=== PATIENT | female | born 1965 | race Caucasian/White ===

== ENCOUNTER → 2016-03-25 | Outpatient (CLI) | payer OTHER ==
[~2016-03-25] MED LIST: APRE1TAB3 PO; ASPCH81X PO; ATOR10TA88 PO; CHOL100027 PO; CYAN500T13 SL; FISHOIL PO; GLC/500 PO; HYDC25 PO; LISI10TA PO; LVMI SC; METH2.5T PO; MULT-506 PO; NVLGI/PEN SC; PRED-301 PO; SERT50TA PO; ZOLP5TAB PO
[2016-03-25 16:55] LABS: URINE APPEARANCE CLEAR (CLEAR); URINE BILIRUBIN NEG (NEG); URINE COLOR DK YELLOW; URINE EPITHELIAL CELL AUTO >30 /lpf (0-5); URINE NITRITE NEG (NEG); URINE PH 6.5 (4.5-7.5); URINE SPECIFIC GRAVITY 1.023 (1.000-1.030); UROBILINOGEN NEG (NEG); ZZUR CULT IF INDIC CLEAN CATCH NO
[2016-03-25 17:04] LABS: ALT/SGPT 31 U/L (12-78); BLOOD UREA NITROGEN 19 mg/dl (7-18); CALCIUM 9.3 mg/dl (8.5-10.1); CARBON DIOXIDE 32 mmol/L (21-32); CHLORIDE 101 mmol/L (98-107); CREATININE 0.84 mg/dl (0.60-1.20); GLUCOSE 134 mg/dl (70-99); MAGNESIUM 1.8 mg/dl (1.8-2.4); MANUAL MICROSCOPIC REQUIRED? NO; POTASSIUM 3.7 mmol/L (3.5-5.1); REVIEW REQ? NO; SODIUM 142 mmol/L (136-145)
[2016-03-25 17:15] LABS: ALB/GLOB RATIO 1.2 (0.9-2); ALKALINE PHOSPHATASE 69 U/L (45-117); AST/SGOT 15 U/L (15-37)
[2016-03-25 17:18] LABS: RATIO 24.2 mcg/mg (0-30.0)
[2016-03-26 06:05] LABS: ESTIMATED AVERAGE GLUCOSE 157 mg/dl; HA1C FLAG Normal (Normal)
== END | disposition home or self-care (01) ==
LOC: C.LAB1850 15:22
PROVIDERS: ATTEND Internal Medicine
DX: E11.9 Type 2 diabetes mellitus without complications (principal); I10 Essential (primary) hypertension; E83.42 Hypomagnesemia; E03.9 Hypothyroidism, unspecified

== ENCOUNTER → 2016-04-07 | Outpatient (CLI) | payer OTHER ==
--- NOTE | 2016-04-07 11:16 | DIAGNOSTIC IMAGING REPORT ---
CT SCAN OF THE CHEST WITHOUT IV CONTRAST CLINICAL HISTORY: Follow-up abnormal chest imaging studies. COMPARISON STUDY: Chest CT dated 07/31/2015. Chest x-ray dated 09/05/2015. TECHNIQUE: CT scan of the thorax was performed from the thoracic inlet to the upper abdomen. Images are reviewed in the axial, sagittal, and coronal planes. IV contrast was not administered for this examination as per the referring clinician. CT DOSE: 610.02 mGycm FINDINGS: Thyroid: Imaged portions of the thyroid gland are normal in size and attenuation. Thoracic aorta: The thoracic aorta is normal in caliber and demonstrates standard 3-vessel arch anatomy. Heart: The heart is normal in size and there is trace pericardial fluid. The pulmonary trunk is normal in caliber. Lungs and pleural spaces: There is no airspace consolidation typical for pneumonia or pleural effusion. Foci of linear atelectasis versus scarring are present in both lungs, greatest in the superior segment of left lower lobe and in the right upper lobe. There are foci of clustered nodularity identified in the left upper lobe and lingula. The largest nodule measures up to 7 mm as seen on image #68. These nodules have decreased in size from the 07/31/2015 examination. The trachea and central airways are clear. Mediastinum: There is no mediastinal lymphadenopathy. Terra: Not well assessed without IV contrast. Axillae: There is no axillary lymphadenopathy. Upper abdomen: There is a tiny hiatal hernia. Hepatic steatosis is suspected. Partially visualized upper abdominal viscera is otherwise within normal limits. Skeletal structures: No lytic or blastic bony lesions are seen. IMPRESSION: 1. There is no lobar consolidation typical or pleural effusion. 2. Foci of clustered nodularity in the left upper lobe and lingula are again seen. The nodules have decreased in size from 07/31/2015 and likely represent a chronic infectious/inflammatory process. Clinical correlation will be required. Electronically signed by: Jerad Williamson M.D. 04/07/2016 11:15 AM Dictated Date/Time: 04/07/2016 11:10 AM
== END | disposition home or self-care (01) ==
LOC: C.CTS 10:56
PROVIDERS: ATTEND Internal Medicine Pulmonary Disease
DX: R91.8 Other nonspecific abnormal finding of lung field (principal)

== ENCOUNTER → 2016-05-26 | Outpatient (CLI) | payer OTHER ==
--- NOTE | 2016-05-26 12:51 | DIAGNOSTIC IMAGING REPORT ---
LUMBAR SPINE 5 VIEWS HISTORY: Back pain M54.5 Low back [id number] COMPARISON: None. FINDINGS: There is no fracture. No subluxation. Mild degenerative disc changes throughout. IMPRESSION: No fracture or subluxation within the lumbar spine. Electronically signed by: Lawrence Chaney M.D. 05/26/2016 12:50 PM Dictated Date/Time: 05/26/2016 12:49 PM
--- NOTE | 2016-05-26 12:53 | DIAGNOSTIC IMAGING REPORT ---
PELVIS/BILATERAL HIP 2 VIEWS CLINICAL HISTORY: Bilateral hip pain. COMPARISON STUDY: None. FINDINGS: No fracture or dislocation within the pelvis or hips. Bilateral hip cartilage spaces are maintained for age. There are mild degenerative changes within the bilateral sacroiliac joints. The sacrum appears intact. Soft tissues are unremarkable. IMPRESSION: 1. No fracture or dislocation within the pelvis or hips. 2. Mild bilateral sacroiliac joint degenerative changes. Electronically signed by: Vasu Vick M.D. 05/26/2016 12:52 PM Dictated Date/Time: 05/26/2016 12:50 PM
--- NOTE | 2016-05-26 12:55 | DIAGNOSTIC IMAGING REPORT ---
KUB HISTORY: M54.5 Low back [id number] COMPARISON: None. FINDINGS: The bowel gas pattern is unremarkable. There are no dilated loops of small bowel to suggest an obstruction. No renal calculi. No ureteral calculi. No pneumoperitoneum or pneumatosis. IMPRESSION: No renal or ureteral stones. Electronically signed by: Vasu Vick M.D. 05/26/2016 12:54 PM Dictated Date/Time: 05/26/2016 12:53 PM
[2016-05-26 13:29] LABS: URINE APPEARANCE CLEAR (CLEAR); URINE BILIRUBIN NEG (NEG); URINE COLOR YELLOW; URINE EPITHELIAL CELL AUTO >30 /lpf (0-5); URINE NITRITE NEG (NEG); URINE PH 5.5 (4.5-7.5); URINE SPECIFIC GRAVITY 1.029 (1.000-1.030); UROBILINOGEN NEG (NEG); ZZUR CULT IF INDIC CLEAN CATCH YES
[2016-05-26 13:32] LABS: MANUAL MICROSCOPIC REQUIRED? NO; REVIEW REQ? NO
== END | disposition home or self-care (01) ==
LOC: C.RAD1850 11:54
PROVIDERS: ATTEND Internal Medicine
DX: M54.5 Low back pain (principal)

== ENCOUNTER → 2016-06-17 | Outpatient (CLI) | payer OTHER ==
[~2016-06-17] MED LIST changes: +ATOR10TA82 PO; -ATOR10TA88 PO; +HYDR25TA4 PO; +INSU100I23 SC; +LEVO50TA6 PO; +MAGN400T6 PO; +OMEG10007 PO; +POTA1TAB PO; +SERT-234 PO; +ZOLP10TA PO
[2016-06-17 13:36] LABS: URINE APPEARANCE TURBID (CLEAR); URINE BILIRUBIN NEG (NEG); URINE COLOR DK YELLOW; URINE EPITHELIAL CELL AUTO 20-30 /lpf (0-5); URINE NITRITE NEG (NEG); URINE SPECIFIC GRAVITY 1.026 (1.000-1.030); UROBILINOGEN NEG (NEG); ZZUR CULT IF INDIC CLEAN CATCH NO
[2016-06-17 13:39] LABS: MANUAL MICROSCOPIC REQUIRED? NO; REVIEW REQ? NO
== END | disposition home or self-care (01) ==
LOC: C.LAB1850 11:48
PROVIDERS: ATTEND Internal Medicine
DX: N39.0 Urinary tract infection, site not specified (principal)

== ENCOUNTER → 2016-09-01 | Outpatient (CLI) | payer OTHER ==
[~2016-09-01] MED LIST changes: +GADAVIST IV PRN
--- NOTE | 2016-09-01 11:30 | DIAGNOSTIC IMAGING REPORT ---
Limited orbits ORBIT COMBO CLINICAL HISTORY: E05.00 Graves [id number] Graves' disease TECHNIQUE: MRI multi axial acquisition. COMPARISON STUDY: None FINDINGS: No evidence for exophthalmos. Globes appear symmetric. Suggestion of slight degree of edematous change about the inferior medial and superior rectus musculature. Trace amount of postcontrast enhancement. No evidence for abnormal enhancement of the retroseptal fat. Optic nerves appear symmetric. IMPRESSION: 1. Slight edematous change of the rectus musculature. 2. Appearance may suggest early and/or secondary evidence for developing Graves' disease. Electronically signed by: Lawrence Chaney M.D. 09/01/2016 11:29 AM Dictated Date/Time: 09/01/2016 11:19 AM
== END | disposition home or self-care (01) ==
LOC: C.MRI 10:21
PROVIDERS: ATTEND Internal Medicine Endocrinology, Diabetes & Metabolism
DX: E05.00 Thyrotoxicosis with diffuse goiter without thyrotoxic crisis or storm (principal)

== ENCOUNTER → 2016-09-02 | Outpatient (CLI) | payer OTHER ==
[~2016-09-02] MED LIST changes: -ATOR10TA82 PO; +ATOR10TA88 PO; -GADAVIST IV PRN; -HYDR25TA4 PO; -INSU100I23 SC; -LEVO50TA6 PO; -MAGN400T6 PO; -OMEG10007 PO; -POTA1TAB PO; -SERT-234 PO; -ZOLP10TA PO
== END | disposition home or self-care (01) ==
LOC: C.PAPS 18:01
PROVIDERS: ATTEND Obstetrics & Gynecology
DX: Z12.4 Encounter for screening for malignant neoplasm of cervix (principal)

== ENCOUNTER → 2016-10-23 | Outpatient (CLI) | payer OTHER ==
--- NOTE | 2016-10-23 12:17 | DIAGNOSTIC IMAGING REPORT ---
CHEST 2 VIEWS ROUTINE CLINICAL HISTORY: R05 [id number] dyspnea COMPARISON STUDY: 09/05/2015 FINDINGS: Unchanging in stable fibrocalcific change and underlying nodularity right upper lung. Plate like atelectasis left base considered chronic. No acute or interval process. IMPRESSION: Chronic change. No acute process. The above report was generated using voice recognition software. It may contain grammatical, syntax or spelling errors. Electronically signed by: Lawrence Chaney M.D. 10/23/2016 12:16 PM Dictated Date/Time: 10/23/2016 12:15 PM
--- NOTE | 2016-10-23 12:25 | DIAGNOSTIC IMAGING REPORT ---
SINUSES MIN 3 VIEWS ROUTINE CLINICAL HISTORY: R05 [id number] cough. Dyspnea. COMPARISON STUDY: None FINDINGS: All major sinuses are clear. Mastoid air cells are clear. No bony destructive process. IMPRESSION: Normal study The above report was generated using voice recognition software. It may contain grammatical, syntax or spelling errors. Electronically signed by: Lawrence Chaney M.D. 10/23/2016 12:23 PM Dictated Date/Time: 10/23/2016 12:23 PM
== END | disposition home or self-care (01) ==
LOC: C.RAD1850 11:49
PROVIDERS: ATTEND Physician Assistant
DX: R05 Cough (principal)

== ENCOUNTER → 2016-10-23 | Outpatient (CLI) | payer OTHER ==
[2016-10-23 13:49] LABS: ESTIMATED AVERAGE GLUCOSE 157 mg/dl; HA1C FLAG Normal (Normal)
[2016-10-23 14:30] LABS: THYROID STIMULATING HORMONE 1.19 uIu/ml (0.300-4.500)
--- NOTE | 2016-10-30 08:59 | CODING QUERY MEDICAL NECESSITY ---
SUPPORTING DIAGNOSIS NEEDED Maile JUSTIN, A supporting diagnosis is required for the test/procedure performed on this patient in order for us to be reimbursed by the patient's insurance. Please provide a supporting diagnosis for the following test/procedure listed below next to the test name along with your signature. *If there is no additional diagnosis for this patient that would support the following test/procedure please document that below next to the test/procedure. Test(s)/Procedure(s) that require a supporting diagnosis: * 80193 VITAMIN D ASSAY DIAGNOSIS: DATE OF SERVICE: 10/23/16 Provider Signature: Date: Thank you Kirk Parekh [facility] Information Management Once completed, please kindly fax back to [phone] For questions please call [phone]
== END | disposition home or self-care (01) ==
LOC: C.LAB1850 12:20
PROVIDERS: ATTEND Nurse Practitioner Adult Health
DX: E03.9 Hypothyroidism, unspecified (principal); E11.9 Type 2 diabetes mellitus without complications; E66.01 Morbid (severe) obesity due to excess calories

== ENCOUNTER → 2017-02-06 | Outpatient (CLI) | payer OTHER ==
[~2017-02-06] MED LIST changes: -APRE1TAB3 PO; +ATOR10TA82 PO; -ATOR10TA88 PO; -FISHOIL PO; -HYDC25 PO; +HYDR25TA4 PO; +INSU100I23 SC; +LEVO50TA6 PO; -LVMI SC; +MAGN400T6 PO; +OMEG10007 PO; +POTA1TAB PO; +SERT-234 PO; -SERT50TA PO; +ZOLP10TA PO; -ZOLP5TAB PO
--- NOTE | 2017-02-06 12:32 | DIAGNOSTIC IMAGING REPORT ---
R KNEE 1 OR 2 VIEWS ROUTINE HISTORY: 51 years-old Female M25.561 Knee pain, [id number] acute right knee pain without reported trauma COMPARISON: Right knee radiographs 09/02/2012 TECHNIQUE: AP and lateral views of the right knee FINDINGS: Mild medial and patellofemoral compartment joint space narrowing with marginal spurring. Enthesophyte at the superior pole of the patella at the quadriceps insertion site redemonstrated. Small joint effusion. No acute fracture, dislocation or osteochondral defect. IMPRESSION: 1. Mild medial and patellofemoral compartment osteoarthritis without acute fracture or dislocation. 2. Small joint effusion. The above report was generated using voice recognition software. It may contain grammatical, syntax or spelling errors. Electronically signed by: Vu Hernández M.D. 02/06/2017 12:31 PM Dictated Date/Time: 02/06/2017 12:27 PM
[2017-02-06 13:28] LABS: ESTIMATED AVERAGE GLUCOSE 163 mg/dl; HA1C FLAG Normal (Normal)
[2017-02-06 13:51] LABS: ALT/SGPT 30 U/L (12-78); BLOOD UREA NITROGEN 17 mg/dl (7-18); BUN/CREATININE RATIO 18.5 (10-20); CALCIUM 9.4 mg/dl (8.5-10.1); CARBON DIOXIDE 31 mmol/L (21-32); CHLORIDE 99 mmol/L (98-107); CHOLESTEROL 191 mg/dl (0-200); CREATININE 0.94 mg/dl (0.60-1.20); GLUCOSE 201 mg/dl (70-99); POTASSIUM 3.6 mmol/L (3.5-5.1); SODIUM 137 mmol/L (136-145); TRIGLYCERIDES 292 mg/dl (0-150); VERY LOW DENSITY LIPOPROT CALC 58 mg/dl
[2017-02-06 13:54] LABS: ALKALINE PHOSPHATASE 67 U/L (45-117); AST/SGOT 16 U/L (15-37); CHOLESTEROL/HDL RATIO 2.5; HDL CHOLESTEROL 76 mg/dl; LDL CHOLESTEROL CALCULATED 57 mg/dl
[2017-02-06 15:33] LABS: RATIO 25.4 mcg/mg (0-30.0)
[2017-02-06 16:00] LABS: THYROID STIMULATING HORMONE 1.31 uIu/ml (0.300-4.500)
== END | disposition home or self-care (01) ==
LOC: C.RAD1850 11:55
PROVIDERS: ATTEND Internal Medicine
DX: M25.561 Pain in right knee (principal); I10 Essential (primary) hypertension; E11.9 Type 2 diabetes mellitus without complications; E78.5 Hyperlipidemia, unspecified; E03.9 Hypothyroidism, unspecified

== ENCOUNTER → 2017-02-16 | Day surgery (SDC) | payer OTHER ==
[2017-02-04 14:36] VITALS: BMI 37.0
[~2017-02-16] VITALS: Ht 160 cm; Wt 95.5 kg
[~2017-02-16] MED LIST changes: +LIDOCAINE HCL 2% 2 ML VIAL (20MG/ML) ONE; +MIDAZOLAM HCL 1 MG/ML 2ML VIAL ONE; +PROPOFOL IV EMULSION 10 MG/ML 20 ML VIAL IV ONE; +SODIUM CHLORIDE 0.9% 500ML 500 ML IV ONE
[2017-02-16 07:45] VITALS: Ht 160 cm; Wt 95.5 kg
--- NOTE | 2017-02-16 08:27 | Endo History and Physical ---
History & Physical Date of Service: Feb 16, 2017. Chief Complaint: SCREENING Referring Physician: NEIL History of Present Illness 51 yo female who presents for screening colonoscopy. Past Surgical History Hx Cardiac Surgery: No Hx Internal Defibrillator: No Hx Pacemaker: No Hx Abdominal Surgery: No Hx Post-Op Nausea and Vomiting: No Hx Cancer Surgery: No Hx Thoracic Surgery: Yes (BRONCHOSCOPY) Hx Orthopedic: No Hx Urinary Tract Surgery: No Family History None Social History Smoking Status: Never Smoker Hx Substance Use: No Hx Alcohol Use: Yes (RARELY) Allergies Coded Allergies: Corticosteroids (Verified Allergy, Unknown, ITCHY THROAT, 02/04/17) Erythromycin (Verified Allergy, Unknown, HIVES, 02/04/17) Penicillins (Verified Allergy, Unknown, RASH, SWELLING, 02/04/17) Current Medications Reported Home Medications Medications Dose Route/Sig Max Daily Dose Days Date Category Dose Instructions Mag-Ox (Magnesium Oxide) 400 Mg Tab 400 Mg PO HS 02/04/17 Reported Levothyroxine Sodium 50 Mcg Tab 1 Tab PO QAM 02/04/17 Reported Potassium Gluconate 595 Mg Tab 1 Tab PO QAM 02/04/17 Reported Ambien (Zolpidem Tartrate) 10 Mg Tab 10 Mg PO HS 02/04/17 Reported Zoloft (Sertraline HCl) 100 Mg Tab 100 Mg PO QAM 02/04/17 Reported Hctz (Hydrochlorothiazide) 25 Mg Tab 25 Mg PO Q2D 02/04/17 Reported [place]-3 (Fish Oil) 1 Ea Cap 2 Cap PO QAM 02/04/17 Reported Basaglar Kwikpen (Insulin Glargine) 100 Unit/Ml Inj 50 Units SC HS 02/04/17 Reported Novolog Flexpen (Insulin Aspart) 100 Units/Ml Inj 5 Units SC AC 02/13/16 Reported IN ADDITION TO SLIDING SCALE Prednisone 5 Mg Tab 5 Mg PO QAM 02/13/16 Reported Methotrexate 2.5 Mg Tab 8 Tab PO WK 02/13/16 Reported Lipitor (Atorvastatin Calcium) 10 Mg Tab 10 Mg PO QPM 02/13/16 Reported Multivitamin (Multivitamins) Tab 1 Tab PO QAM 02/13/16 Reported Glucophage (Metformin Hcl) 500 Mg Tab 2 Tab PO QAM 02/13/16 Reported Aspirin Chewable (Aspirin) 81 Mg Chew 81 Mg PO HS 02/13/16 Reported Prinivil (Lisinopril) 10 Mg Tab 10 Mg PO QAM 03/29/12 Reported Vitamin D 1000 Unit (Cholecalciferol) 1,000 Unit Cap 2 Capsules PO QAM 03/29/12 Reported Vitamin B12 500MCG (Cyanocobalamin) 500 Mcg Tab 500 Mcg SL QAM 03/29/12 Reported Vital Signs Weight (Kilograms): 95.45 Height (Feet): 5 Height (Inches): 3 Date Time Temp Pulse Resp B/P (MAP) Pulse Ox O2 Delivery O2 Flow Rate FiO2 02/16/17 08:04 37.1 107 20 187/104 (131) 97 Room Air Physical Exam General Appearance: WD/WN, no apparent distress Respiratory/Chest: Auscultation: breath sounds normal Cardiovascular: Heart Auscultation: RRR Abdomen: Bowel Sounds: normal Inspection & Palpation: soft, non-distended, no tenderness, guarding & rebound Assessment and Plan Assessment: 51 yo female who presents for screening colonoscopy. Plan: Proceed with colonoscopy.
--- NOTE | 2017-02-16 08:52 | Discharge Instructions ---
Endoscopy Patient Instructions Date / Procedure(s) Performed Feb 16, 2017. Colonoscopy Allergy Information Coded Allergies: Corticosteroids (Verified Allergy, Unknown, ITCHY THROAT, 02/04/17) Erythromycin (Verified Allergy, Unknown, HIVES, 02/04/17) Penicillins (Verified Allergy, Unknown, RASH, SWELLING, 02/04/17) Discharge Date / Findings Feb 16, 2017. Internal hemorrhoids Medication Instructions Stopped Medication(s): METFORMIN AND ASA OK to resume all medications today as prescribed Reported Home Medications Medications Dose Route/Sig Max Daily Dose Days Date Category Dose Instructions Mag-Ox (Magnesium Oxide) 400 Mg Tab 400 Mg PO HS 02/04/17 Reported Levothyroxine Sodium 50 Mcg Tab 1 Tab PO QAM 02/04/17 Reported Potassium Gluconate 595 Mg Tab 1 Tab PO QAM 02/04/17 Reported Ambien (Zolpidem Tartrate) 10 Mg Tab 10 Mg PO HS 02/04/17 Reported Zoloft (Sertraline HCl) 100 Mg Tab 100 Mg PO QAM 02/04/17 Reported Hctz (Hydrochlorothiazide) 25 Mg Tab 25 Mg PO Q2D 02/04/17 Reported [place]-3 (Fish Oil) 1 Ea Cap 2 Cap PO QAM 02/04/17 Reported Basaglar Kwikpen (Insulin Glargine) 100 Unit/Ml Inj 50 Units SC HS 02/04/17 Reported Novolog Flexpen (Insulin Aspart) 100 Units/Ml Inj 5 Units SC AC 02/13/16 Reported IN ADDITION TO SLIDING SCALE Prednisone 5 Mg Tab 5 Mg PO QAM 02/13/16 Reported Methotrexate 2.5 Mg Tab 8 Tab PO WK 02/13/16 Reported Lipitor (Atorvastatin Calcium) 10 Mg Tab 10 Mg PO QPM 02/13/16 Reported Multivitamin (Multivitamins) Tab 1 Tab PO QAM 02/13/16 Reported Glucophage (Metformin Hcl) 500 Mg Tab 2 Tab PO QAM 02/13/16 Reported Aspirin Chewable (Aspirin) 81 Mg Chew 81 Mg PO HS 02/13/16 Reported Prinivil (Lisinopril) 10 Mg Tab 10 Mg PO QAM 03/29/12 Reported Vitamin D 1000 Unit (Cholecalciferol) 1,000 Unit Cap 2 Capsules PO QAM 03/29/12 Reported Vitamin B12 500MCG (Cyanocobalamin) 500 Mcg Tab 500 Mcg SL QAM 03/29/12 Reported Provider Instructions Activity Restrictions - No exercising or heavy lifting for 24 hours. - Do not drink alcohol the day of the procedure. - Do not drive a car or operate machinery until the day after the procedure. - Do not make any important decisions or sign important papers in 24 hours after the procedure. Following Day: - Return to full activity which may include returning to work/school. Diet Start your diet with liquids and light foods (jello, soup, juice, toast). Then eat your usual diet if not nauseated. Treatment For Common After Affects For mild abdominal pain, bloating, or excessive gas: - Rest - Eat lightly - Lie on right side Follow-Up Information Follow-up with NEIL as scheduled Anesthesia Information What You Should Know You have had a procedure that required some medicine to reduce anxiety and discomfort. This treatment is called moderate sedation. After receiving the treatment, you may be sleepy, but you will be able to breathe on your own. The effects of the treatment may last for several hours. Follow these instructions along with Activity/Diet recommendations noted above: * Do NOT do anything where dizziness or clumsiness would be dangerous. * Rest quietly at home today, then you can be up and about tomorrow. * Have a responsible person stay with you the rest of today. * You may have had an I.V. today. If so, you may take the dressing off later today. Recommendations Call your doctor if: * Trouble breathing * Continuous vomiting for more than 24 hours * Temperature above 101 degrees * Severe abdominal pain or bloating * Pain not relieved by pain medicine ordered * There is increased drainage or redness from any incision * A large amount of rectal bleeding greater than 2-3 tablespoons. (If you had a polyp/s removed or have hemorrhoids, a small amount of blood - from the rectum is to be expected.) * You have any unanswered questions or concerns. IN THE EVENT OF A SERIOUS EMERGENCY, GO TO THE NEAREST EMERGENCY ROOM Your discharge instructions were prepared by provider Griffin Calvo. Patient Instructions Signature Page Skylar William Patient (or Guardian) Signature/Date: I have read and understand the instructions given to me by my caregivers. Caregiver/RN/Doctor Signature/Date: The above-named patient and/or guardian has received patient instructions on this date. + Original Patient Signature Page (only) stays with chart. Please make copy for patient.
--- NOTE | 2017-02-16 08:55 | GI REPORT ---
Procedure Date: 02/16/2017 8:33 AM Procedure: Colonoscopy Indications: Screening for colorectal malignant neoplasm Medicines: Monitored Anesthesia Care Complications: No immediate complications. Estimated Blood Loss: Estimated blood loss: none. Procedure: Pre-Anesthesia Assessment: - Prior to the procedure, a History and Physical was performed, and patient medications and allergies were reviewed. The patient's tolerance of previous anesthesia was also reviewed. The risks and benefits of the procedure and the sedation options and risks were discussed with the patient. All questions were answered, and informed consent was obtained. Prior Anticoagulants: The patient has taken aspirin, last dose was 3 days prior to procedure. ASA Grade Assessment: II - A patient with mild systemic disease. After reviewing the risks and benefits, the patient was deemed in satisfactory condition to undergo the procedure. After I obtained informed consent, the scope was passed under direct vision. Throughout the procedure, the patient's blood pressure, pulse, and oxygen saturations were monitored continuously. The scope was introduced through the anus and advanced to the terminal ileum. The colonoscopy was performed without difficulty. The patient tolerated the procedure well. The quality of the bowel preparation was good. The terminal ileum, ileocecal valve, appendiceal orifice, and rectum were photographed. Findings: The perianal and digital rectal examinations were normal. Non-bleeding internal hemorrhoids were found during retroflexion. The hemorrhoids were small. The exam was otherwise without abnormality. Impression: - Non-bleeding internal hemorrhoids. - The examination was otherwise normal. - No specimens collected. Recommendation: - Resume previous diet. - Continue present medications. - Repeat colonoscopy in 10 years for surveillance. - Return to primary care physician as previously scheduled. Griffin Calvo DO 02/16/2017 8:54:31 AM This report has been signed electronically. Note Initiated On: 02/16/2017 8:33 AM I attest to the content of the Intraoperative Record and orders documented therein, exceptions below
[2017-02-16 10:10] VITALS: BP 161/89; PULSE 85; O2SAT 98
--- NOTE | 2017-02-16 10:12 | Anesthesiology Progress Note ---
Anesthesia Post Op Note Date & Time Feb 16, 2017 at 10:12 Vital Signs Pain Intensity: 0 Vital Signs Past 12 Hours Date Time Temp Pulse Resp B/P (MAP) Pulse Ox O2 Delivery O2 Flow Rate FiO2 02/16/17 09:55 91 20 152/93 (112) 98 Room Air 02/16/17 09:50 87 20 162/99 (120) 99 Room Air 02/16/17 09:40 87 20 160/97 (118) 99 Room Air 02/16/17 09:25 85 20 158/103 (121) 99 Room Air 02/16/17 09:10 92 20 163/108 (126) 97 Room Air 02/16/17 08:54 88 20 134/99 (111) 96 Room Air 02/16/17 08:04 37.1 107 20 187/104 (131) 97 Room Air Notes Mental Status: alert / awake / arousable, participated in evaluation Pt Amnestic to Procedure: Yes Nausea / Vomiting: adequately controlled Pain: adequately controlled Airway Patency, RR, SpO2: stable & adequate BP & HR: stable & adequate Hydration State: stable & adequate Anesthetic Complications: no major complications apparent
== END | disposition home or self-care (01) ==
LOC: C.GI 07:31
PROVIDERS: ATTEND Internal Medicine
DX: Z12.11 Encounter for screening for malignant neoplasm of colon (principal); K64.8 Other hemorrhoids; I10 Essential (primary) hypertension; G47.33 Obstructive sleep apnea (adult) (pediatric); E66.9 Obesity, unspecified; Z88.0 Allergy status to penicillin; Z68.37 Body mass index [BMI] 37.0-37.9, adult; Z98.890 Other specified postprocedural states; Z79.899 Other long term (current) drug therapy; Z79.4 Long term (current) use of insulin

== ENCOUNTER → 2017-04-06 | Outpatient (CLI) | payer BC, OTHER ==
[~2017-04-06] MED LIST changes: -LIDOCAINE HCL 2% 2 ML VIAL (20MG/ML) ONE; -MIDAZOLAM HCL 1 MG/ML 2ML VIAL ONE; -PROPOFOL IV EMULSION 10 MG/ML 20 ML VIAL IV ONE; -SODIUM CHLORIDE 0.9% 500ML 500 ML IV ONE
--- NOTE | 2017-04-06 10:44 | DIAGNOSTIC IMAGING REPORT ---
CT SCAN OF THE CHEST WITHOUT IV CONTRAST CLINICAL HISTORY: Follow-up abnormal chest imaging studies. COMPARISON STUDY: Chest CT dated 04/07/2016 and 07/31/2015. TECHNIQUE: CT scan of the thorax was performed from the thoracic inlet to the upper abdomen. Images are reviewed in the axial, sagittal, and coronal planes. IV contrast was not administered for this examination as per the referring clinician. A dose lowering protocol was utilized adhering to the principles of ALARA. CT DOSE: 683.71 mGycm FINDINGS: Thyroid: Imaged portions of the thyroid gland are normal in size and attenuation. Thoracic aorta: The thoracic aorta is normal in caliber and demonstrates standard 3-vessel arch anatomy. Heart: The heart is normal in size and there is trace pericardial fluid. The pulmonary trunk is normal in caliber. Lungs and pleural spaces: There is no airspace consolidation typical for pneumonia or pleural effusion. Linear atelectasis versus scarring is again seen in both lungs, greatest at the left lung base. Again seen are are foci of clustered nodularity in the left upper lobe and lingula. The largest nodule measures up to 7 mm as seen on image #82. Clustered nodularity is also seen at the right apex on image #74. The largest right upper lobe nodule measures up to 9 mm. These findings have not significantly changed from 04/07/2016 but have significantly improved dating back to 07/31/2015. The trachea and central airways are clear. Mediastinum: There is no mediastinal lymphadenopathy. Terra: Not well assessed without IV contrast. Axillae: There is no axillary lymphadenopathy. Upper abdomen: There is a tiny hiatal hernia. The liver is enlarged and steatotic. Partially visualized upper abdominal viscera is otherwise within normal limits. Skeletal structures: No lytic or blastic bony lesions are seen. IMPRESSION: 1. There is no lobar consolidation or pleural effusion. 2. Foci of clustered nodularity in the left upper lobe, the lingula, and at the right apex are again seen. These findings have not significantly changed from 04/07/2016 but have significantly improved from 07/31/2015. This likely represent a chronic infectious/inflammatory process. Clinical correlation will be required. 3. There is no mediastinal adenopathy. 4. Hepatomegaly and hepatic steatosis. Electronically signed by: Jerad Williamson M.D. 04/06/2017 10:43 AM Dictated Date/Time: 04/06/2017 10:35 AM
== END | disposition home or self-care (01) ==
LOC: C.CTS 10:23
PROVIDERS: ATTEND Physician Assistant
DX: R91.8 Other nonspecific abnormal finding of lung field (principal)

== ENCOUNTER 2017-05-05 07:19 | Day surgery (SDC) | payer OTHER ==
--- NOTE | 2017-05-04 10:47 | History and Physical ---
History & Physical Date of Service May 04, 2017. History & Physical 51-year-old female presents for bronchoscopic evaluation of chronic cough. Patient is noted to have right upper lobe infiltrative changes on CT on 2015 which have notably resolves down to a 9 mm right upper lobe nodule. PMHx includes: Psoriasis, DM II, migraine CALLES, rheumatoid arthritis (Humira since 02/2015 and methotrexate), hypertension, pneumonia (dx 2010 & 2015), depression, h/o chronic steroid use (5mg) prednisone. No history of tobacco. She is [employer]. 05/2015 the patient was admitted to [facility] with sepsis and bilateral pneumonia complicated by hypoxic respiratory failure. History: travel [place] 04/2015. CXR: bilateral patchy infiltrate. CT chest 06/01/2015: Peribronchial inflammation with spiculated nodular densities consistent with bronchopneumonia/inflammation, mildly enlarged mediastinal and hilar lymph nodes. Patient improved slowly with levofloxacin and supportive care. CXR 06/12 & 07/09/2015 continued to described extensive multifocal airspace opacities -Digna had been held. CT 07/31/2015: notable for multilobular airspace opacities with associated air bronchogram and enlarged lymph nodes (not pathologically enlarged). She completed a course of doxycycline and steroid with PRN ProAir for symptoms of persistent cough and dyspnea. Bronchoscopy (PET/CT denied by insurance) with Dr. Gutierrez 08/07/2015 with lavage of moderate secretions from the LLL. No tissue abnormality or biopsies. Cytology: negative for malignancy. Cultures: normal bobbi. She did have some prolonged recovery from medications but otherwise tolerated this procedure well. CT chest 04/15/16: changes consistent with atelectasis and scarring. Nodules are stable and several have decreased in size. Largest 7mm. PFT 10/24/2015: FVC: 2.86/93%, FEV1: 2.55/100%, FEV1/FVC: 106%, FEF 25-75%: 3.84/ 135%, PEF: 5.09/87%, VC: 2.89/94%, T.4/71%, RV: 0.51/31%, DLCO: 53% Patient underwent repeat CT chest 04/06/2017 (reviewed). This continue to describe stability of the multiple pulmonary nodules largest on the left measuring 7 mm and largest on the right apical measuring 9 mm. These continued to be improved from 07/2015 but were unchanged from CT 03/2016. No associated mediastinal lymphadenopathy. On exam/interview today she continues to report cough typically in the morning. In more frequently cough is dry however on occasion she is able to expectorates clear mucus. No hemoptysis She reports some very mild intermittent sinus drainage and a sensation that there is phlegm in the back of her throat. No fevers, chills, pleuritic pain, dyspnea, or wheeze. She does report some dyspnea provoked with hot humid weather or showering in steamy water. Review of Systems Constitutional: no fever, not feeling poorly, no chills and not feeling tired. Eyes: negative. ENT: as noted in HPI. Cardiovascular: no chest pain and no palpitations. Respiratory: cough, but as noted in HPI, no shortness of breath, no wheezing and no shortness of breath during exertion. Gastrointestinal: negative. Musculoskeletal: myalgias, but negative. Hematologic/Lymphatic: negative. Active Problems 1. Abnormal finding on lung imaging 2. Allergy 3. Anxiety 4. Arthralgia of multiple sites 5. Controlled diabetes mellitus with long-term current use of insulin 6. Cough 7. Current use of steroid medication 8. De Quervain's tenosynovitis 9. Delayed gastric emptying 10. Depression 11. Dyslipidemia 12. Essential hypertriglyceridemia 13. Graves disease 14. Graves' ophthalmopathy 15. Grief reaction 16. High risk medication use 17. Hypertension 18. Hypothyroidism 19. Insomnia 20. Internal hemorrhoids 21. Knee pain, right ( 22. Lymphadenopathy 23. Microalbuminuria 24. Migraine headache 25. Myalgia 26. Obesity, morbid, BMI 40.0-49.9 27. Obstructive sleep apnea 28. On methotrexate therapy 29. Panic attacks 30. Psoriasis 31. Psoriatic arthropathy 32. Pulmonary nodules 33. Unspecified ptosis of unspecified eyelid Surgical History 1. History of Dental Surgery 2. History of Oral Surgery Tooth Extraction Family History 1. Family history of cardiac disorder (Z82.49) 2. Family history of diabetes mellitus (Z83.3) 3. Family history of gallbladder disease (Z83.79) 4. Family history of hypertension (Z82.49) 5. Family history of Systemic Lupus Erythematosus 6. Family history of diabetes mellitus (Z83.3) 7. Family history of due to congestive heart failure 8. Family history of diabetes mellitus (Z83.3) 9. Family history of Ovarian Cancer 10. Denied: Family history of Breast Cancer 11. Denied: Family history of Colon Cancer 12. Denied: Family history of malignant neoplasm of prostate Social History Exercise limited by physical condition Living situation Never smoker Never used moist powdered tobacco No drug use No secondhand smoke exposure Rarely consumes alcohol Unemployed, looking for work Uses Safety Equipment - Seatbelts Current Meds 1. PredniSONE 5 MG Oral Tablet; TAKE 1 TABLET DAILY 2. Basaglar KwikPen 100 UNIT/ML Subcutaneous Solution Pen-injector; inject 50 units 3. BD Insulin Syr Ultrafine II 31G X 5/16" 0.5 ML; USE WITH INSULIN 4 TIMES DAILY AND 4. BD Insulin Syringe Ultrafine 31G X 15/64" 0.3 ML; For use with levemir and novolog 4 5. MetFORMIN HCl ER 500 MG Oral Tablet Extended Release 24 Hour; TAKE 2 TABETS BY 6. NovoFine 32G X 6 MM; Inject 5 times daily with Novolog Pen; 7. NovoLOG 100 UNIT/ML Subcutaneous Solution; INJECT 5 UITS AT EACH MEAL PLUS 8. NovoLOG FlexPen 100 UNIT/ML Subcutaneous Solution Pen-injector; Inject up to 60 9. OneTouch Delica Lancets Fine; Test 4 times daily; 10. OneTouch Ultra Blue In Vitro Strip; test 4 times a day; 11. Sertraline HCl - 100 MG Oral Tablet; TAKE 1 TABLET BY MOUTH DAILY; 12. Atorvastatin Calcium 10 MG Oral Tablet; Take one tablet by mouth at bedtime 13. Folic Acid 800 MCG Oral Tablet; 1 tablet 6 days a week; 14. Multivitamins TABS; TAKE 1 TABLET DAILY; 15. Bridgman 3-6-9 Complex Oral Capsule; TAKE 1 CAPSULE Daily; 16. Potassium Gluconate 595 (99 K) MG Oral Tablet; TAKE 1 TABLET DAILY; 17. Vitamin B-12 2500 MCG Sublingual Tablet Sublingual; take 3 days weekly; 18. Vitamin D 2000 UNIT Oral Tablet; TAKE 2 TABLET Daily 19. Aspirin 81 MG TABS; TAKE 1 TABLET DAILY 20. HydroCHLOROthiazide 25 MG Oral Tablet; TAKE 1 TABLET BY MOUTH EVERY OTHER 21. Lisinopril 10 MG Oral Tablet; TAKE 1 TABLET DAILY FOR BLOOD PRESSURE; 22. Magnesium 400 MG CAPS; Take 1 capsule twice daily; 23. Levothyroxine Sodium 50 MCG Oral Tablet; TAKE 1 TABLET EVERY MORNING ON AN 24. Zolpidem Tartrate 10 MG Oral Tablet; TAKE 1 TABLET BY MOUTH QHS PRN 25. Methotrexate 2.5 MG Oral Tablet; TAKE 8 TABLETS PER WEEK 26. Otezla 10 & 20 & 30 MG Oral Tablet Therapy Pack; per instructions from Rheumatology 30 mg bid; Allergies 1. Erythromycin TABS 2. Penicillins 3. Corticosteroids Denied 4. Sertraline HCl TABS Vital Signs Blood Pressure: 134 / 82 Heart Rate: 92 Respiration: 16 O2 Saturation: 94, RA Temperature: 98.9 F Constitutional: Well developed, well nourished obese female. No acute distress. Head: + facial symmetry Eyes: EOMi, PERRLA, no conjunctival injection Mouth: Moist mucous membranes. No erythema, exudate, or post nasal gtt Neck: Trachea midline. No adenopathy or masses Respiratory: Non-labored respirations. No wheeze, rales or rhonchi. No clubbing or cyanosis. Cardiovascular: RRR, no MRG. +2 radial pulses. <1s capillary refill. Integumentary: no rashes, or ecchymosis MSK/Extremities: Moving and developed symmetrically. No peripheral edema. No calf tenderness. Neurologic: A&O, data recall in-tact. Appropriate affect.
[~2017-05-05] VITALS: Ht 158.8 cm; Wt 97.0 kg
[2017-05-05 07:53] VITALS: BP 133/86; PULSE 87; TEMP 36.6; O2SAT 97; Ht 158.8 cm; Wt 97.0 kg
--- NOTE | 2017-05-05 08:57 | History & Physical Bridge Note ---
H&P Re-Evaluation Bridge Note: I have examined the patient, reviewed the History & Physical and in the interval since the performance of the History & Physical I have noted the following changes of clinical significance: No changes noted
--- NOTE | 2017-05-05 08:58 | Pre Sedation Assessment ---
Pre Sedation Assessment General Date of Sedation: May 05, 2017. Vital Signs Past 12 Hours Date Time Temp Pulse Resp B/P (MAP) Pulse Ox O2 Delivery O2 Flow Rate FiO2 05/05/17 07:53 36.6 87 20 133/86 (102) 97 Room Air Review Cardiovascular: regular rate, rhythm, no edema, no gallop, no JVD, no murmur, normal peripheral pulses Lungs: chest non-tender, lungs clear, normal breath sounds, no respiratory distress, no accessory muscle use Pre-Sedation Airway Assessment Smoking Status: Never Smoker Hx of Sleep Apnea: No Hx of difficult intubation: No Short Thick Neck: Yes Thyro-mental Distance: > 3 Finger Breadths Oral Cavity: WNL Mallampati Classification: Class II ASA Classification: Class II NPO Status Date of Last Intake of Fluids: May 04, 2017 Time of Last Intake of Fluids: 2199 Date of Last Intake of Solids: May 04, 2017 Time of Last Intake of Solids: 2199 Procedure Planning Contraindications for Sedation: None Current Medications Reviewed: Yes Notes The planned sedation has been discussed with the patient. Informed Consent was obtained. I have identified the patient, determined the appropriateness of sedation and have assessed the patient immediately prior to the procedure. All medicine(s) and interventions are by my order.
[2017-05-05] MEDS ORDERED: MIDAZOLAM HCL 5 MG/ML 1 ML VIAL IV ONE (09:34)
[2017-05-05] MEDS ORDERED: LIDOCAINE HCL 2% LOCAL 50ML VIAL INSTIL ONE (09:34)
[2017-05-05] MEDS ORDERED: FENTANYL CITRATE INJ 50 MCG/1 ML 2 ML VIAL IV ONE (09:34)
[2017-05-05] MEDS ORDERED: LIDOCAINE 4% INH SOLN 4 ML BTL TOP ONE (09:34)
[2017-05-05] MEDS ORDERED: LIDOCAINE VISCOUS 2% 100ML TOP ONE (09:34)
--- NOTE | 2017-05-05 09:36 | Bronchoscopy Procedure Note ---
Bronchoscopy Procedure Note Procedure: Bronchoscopy, conscious sedation, bronchial lavage of the right upper lobe and left lower lobe Consent: Obtained through the patient placed into the chart Pre-procedural diagnosis: Pulmonary nodules Post-procedural diagnosis: Pulmonary nodules Start time: 914 End time: 929 Total time: 15 minutes Analgesia: 2% liquid lidocaine: Via nebulizer 4% gel lidocaine: Via right naris 2% liquid lidocaine: Via bronchoscopy Sedation: Versed IV: 3mg Fentanyl IV: 50 g Procedure: The [employer] video bronchoscope was used for this procedure and passed down through the right naris Right naris/posterior naris/posterior oropharynx: Anatomically within normal limits Glottis: Anatomically within normal limits Vocal cords: Proper abduction and abduction, anatomically within normal limits Subglottis/trachea/Maria Esther: Anatomically within normal limits Right bronchial tree: Right mainstem bronchus: Anatomically within normal limits Right upper lobe: Anatomically within normal limits Bronchus intermedius: Anatomically within normal limits Right middle lobe: Anatomically within normal limits Right lower lobe: Anatomically within normal limits Findings: No significant findings noted Left bronchial tree: Left mainstem bronchus: Anatomically within normal limits Left upper lobe: Anatomically within normal limits Lingula: Anatomically within normal limits Left lower lobe: Anatomically within normal limits Findings: No significant findings noted Bronchial alveolar lavage: RUL (RB3) & LLL (LB6) EBL: None Complications: None Follow-up: ASU
--- NOTE | 2017-05-05 09:36 | Post Sedation Assessment ---
Post Sedation Assessment General Date of Sedation May 05, 2017. Vital Signs: Vital Signs Past 12 Hours Date Time Temp Pulse Resp B/P (MAP) Pulse Ox O2 Delivery O2 Flow Rate FiO2 05/05/17 09:30 87 15 138/92 100 Oxymask 6 05/05/17 09:25 85 14 142/87 100 Oxymask 6 05/05/17 09:20 83 18 127/83 100 Oxymask 6 05/05/17 09:15 85 18 146/84 100 Oxymask 6 05/05/17 09:10 87 21 146/86 100 Oxymask 6 05/05/17 07:53 36.6 87 20 133/86 (102) 97 Room Air Post Procedure Recovery Score Activity: (2) Moves 4 extremities * Respiration: (2) Deep breath/cough Circulation: (2) +/-20% PreAnes Value Consciousness: (2) Fully Awake Oxygen Saturation: (2) > 92% On Room Air Discharge Sedation Level of Care: Fast Track Phase II Post Sedation Plan On clinical assessment, the patient appears to have tolerated the sedation without complications. Patient is recovering as anticipated. Patient will continue to be monitored by nursing and may be discharged when sedation discharge criteria are met per below protocol. Upon Completions of procedure and additional 15 minutes continue every 5 minute vital signs and the P.A.R. score; then discharge to a Phase I or Fast Track to Phase II per the following guidelines: * Discharge Patient to appropriate Phase II area if PAR is 8 or greater or return to pre- procedure baseline. The post - procedure orders will be as directed. * If PAR score is less than 8 or not return to pre-procedure baseline then patient will follow Phase I monitoring till PAR is reached for Phase II. The Phase I may be done in procedure room or may call to secure a Phase I area. * If naloxone or flumazenil are used for reversal, hold in Phase I for an additional 60 -120 minutes before discharge to Phase II. Please call the Sedation Physician to re-evaluate and complete post-note for discharge to Phase II area. Do NOT discharge from procedure sedation or Phase 1 until post- sedation evaluation note is complete by procedure /sedation MD Sedation Discharge Instructions to be given to the patient at discharge to home.
--- NOTE | 2017-05-05 09:40 | Discharge Instructions ---
Discharge Instructions Date of Service May 05, 2017. Admission Reason for Admission: Cough, Pulmonary Nodules Discharge Discharge Diagnosis / Problem: Pulmonary nodules Discharge Goals Goal(s): Diagnostic testing Activity Recommendations Activity Limitations: resume your previous activity Exercise/Sports Limitations: as tolerated Driving or Machine Use: resume 1 day after discharge . Current Hospital Diet Patient's current hospital diet: Discharge Diet Recommended Diet: Regular Diet Procedures Procedures Performed: bronchoscopy, bronchial lavage of the right upper lobe and left lower lobe along with conscious sedation Pending Studies Studies pending at discharge: no Laboratory Results Hemoglobin A1c Test 02/06/17 12:04 Range/Units Estimated Average Glucose 163 mg/dl Hemoglobin A1c 7.3 H 4.5-5.6 % Lipid Panel Test 02/06/17 12:04 Range/Units Triglycerides Level 292 H 0-150 mg/dl Cholesterol Level 191 0-200 mg/dl HDL Cholesterol 76 mg/dl Cholesterol/HDL Ratio 2.5 LDL Cholesterol, Calculated 57 mg/dl Medical Emergencies . Who to Call and When: Medical Emergencies: If at any time you feel your situation is an emergency, please call 911 immediately. . Non-Emergent Contact Non-Emergency issues call your: Mechanical Engineering Professor Call Non-Emergent contact if: you have a fever, temperature is above 101 . . "Provider Documentation" section prepared by Rick Ribera. . VTE Core Measure Inpt VTE Proph given/why not?: Treatment not indicated
[2017-05-05 09:50] VITALS: BP 140/87; PULSE 89; TEMP 36.9; O2SAT 97
[2017-05-05 10:21] VITALS: BP 131/83; PULSE 85; O2SAT 98
[2017-05-05 10:53] VITALS: BP 132/78; PULSE 82; O2SAT 95
[2017-05-05 11:20] VITALS: BP 130/80; PULSE 85; TEMP 36.6; O2SAT 96
[2017-05-05 11:43] VITALS: BP 149/82; PULSE 87; TEMP 36.5; O2SAT 95
== END 2017-05-05 11:50 | disposition home or self-care (01) ==
LOC: C.ACU 07:19
PROVIDERS: ATTEND Internal Medicine Critical Care Medicine
DX: R91.1 Solitary pulmonary nodule (principal); R05 Cough; M06.9 Rheumatoid arthritis, unspecified; E11.9 Type 2 diabetes mellitus without complications; I10 Essential (primary) hypertension; E78.5 Hyperlipidemia, unspecified; E03.9 Hypothyroidism, unspecified; E66.01 Morbid (severe) obesity due to excess calories; G47.33 Obstructive sleep apnea (adult) (pediatric); Z87.01 Personal history of pneumonia (recurrent); Z79.4 Long term (current) use of insulin; Z79.899 Other long term (current) drug therapy; Z79.82 Long term (current) use of aspirin; Z79.52 Long term (current) use of systemic steroids; Z79.01 Long term (current) use of anticoagulants; Z98.890 Other specified postprocedural states; Z98.818 Other dental procedure status; Z82.49 Family history of ischemic heart disease and other diseases of the circulatory system; Z83.3 Family history of diabetes mellitus; Z83.79 Family history of other diseases of the digestive system; Z80.41 Family history of malignant neoplasm of ovary; Z88.1 Allergy status to other antibiotic agents; Z88.0 Allergy status to penicillin; Z88.8 Allergy status to other drugs, medicaments and biological substances

== ENCOUNTER → 2017-05-11 | Outpatient (CLI) | payer OTHER ==
[2017-05-11 14:41] LABS: BASO % 0.4 %; BASO ABS # 0.04 K/uL (0-0.2); EOS % 0.7 %; EOS ABS # 0.07 K/uL (0-0.5); HEMATOCRIT 43.4 % (37-47); HEMOGLOBIN 14.6 g/dL (12.0-16.0); IG# 0.03 K/uL (0.00-0.02); LYMPH % 23.5 %; LYMPH ABS # 2.47 K/uL (1.2-3.4); MEAN CORPUSCULAR HEMOGLOBIN 30.3 pg (25-34); MEAN CORPUSCULAR HGB CONC 33.6 g/dl (32-36); MEAN PLATELET VOLUME 11.4 fL (7.4-10.4); MONO % 9.3 %; MONO ABS # 0.98 K/uL (0.11-0.59); NEUT % 65.8 %; NEUT ABS # 6.91 K/uL (1.4-6.5); PLATELET COUNT 221 K/uL (130-400); RED CELL DISTRIBUTION WIDTH CV 13.8 % (11.5-14.5); RED CELL DISTRIBUTION WIDTH SD 45.2 fL (36.4-46.3)
[2017-05-11 14:49] LABS: INR 0.9 (0.9-1.1); PTT PATIENT 24.9 SECONDS (21.0-31.0)
[2017-05-11 15:08] LABS: BLOOD UREA NITROGEN 16 mg/dl (7-18); CALCIUM 9.1 mg/dl (8.5-10.1); CARBON DIOXIDE 31 mmol/L (21-32); CREATININE 0.98 mg/dl (0.60-1.20); GLUCOSE 202 mg/dl (70-99); POTASSIUM 3.2 mmol/L (3.5-5.1); SODIUM 138 mmol/L (136-145)
== END | disposition home or self-care (01) ==
LOC: C.LAB1850 13:02
PROVIDERS: ATTEND Internal Medicine Endocrinology, Diabetes & Metabolism
DX: E05.00 Thyrotoxicosis with diffuse goiter without thyrotoxic crisis or storm (principal); R05 Cough